=== PATIENT | female | born 1955 | race Caucasian/White ===

== ENCOUNTER → 2016-09-17 | Outpatient (CLI) | payer OTHER ==
[~2016-09-17] VITALS: Ht 160 cm; Wt 93.0 kg
[~2016-09-17] MED LIST: BACTRIM,SEPT1 TABLET PO; BACTROBAN OINTM22 GM TP; BUTALB-ACETAMI1 EAC2 PO; COZAAR100 MG PO; CYCLOBENZAPRINE5 MG PO; ERGOCALCIF50000 UNIT PO; FEMARA2.5 MG PO; FENOFIBRATE160 M1 PO; FIORICET 50-301 EACH PO; FIORINAL 50-321 EACH PO; FLEXERIL5 MG PO; KEFLEX500 MG PO; LOFIBRA,TRIGLI160 MG PO; LOSARTAN POTAS100 MG PO; MELOXICAM15 MG PO; MOBIC15 MG PO; OMEPRAZOLE20 MG PO; OXYCODONE HCL10 MG PO; OXYCODONE HCL5 MG PO; PRILOSEC20 MG PO; SERTRALINE HCL100 MG PO; SIMVASTATIN20 MG PO; TAZTIA XT360 MG PO; TOPAMAX25 MG PO; TOPIRAMATE25 MG PO; ZOCOR20 MG PO; ZOLOFT100 MG PO
== END | disposition home or self-care (01) ==
LOC: AMB 07:21
PROC: 0DJD8ZZ Inspection of Lower Intestinal Tract, Via Natural or Artificial Opening Endoscopic (ICD-10-PCS; principal; 2016-09-17)
DX: Z12.11 Encounter for screening for malignant neoplasm of colon (principal); C50.912 Malignant neoplasm of unspecified site of left female breast; K57.90 Diverticulosis of intestine, part unspecified, without perforation or abscess without bleeding; K64.8 Other hemorrhoids; E78.5 Hyperlipidemia, unspecified; I10 Essential (primary) hypertension; E66.9 Obesity, unspecified; Z68.36 Body mass index [BMI] 36.0-36.9, adult; R73.09 Other abnormal glucose; Z87.891 Personal history of nicotine dependence; Z88.5 Allergy status to narcotic agent; Z88.6 Allergy status to analgesic agent; Z88.8 Allergy status to other drugs, medicaments and biological substances
CPT/HCPCS: 93005

== ENCOUNTER 2016-10-20 06:50 | Day surgery (SDC) | payer OTHER ==
[~2016-10-20] VITALS: Ht 160 cm; Wt 94.3 kg
[~2016-10-20 06:50] MED LIST changes: +FIBER SELECT G1 EACH PO
[2016-10-20] MEDS ORDERED: FIBERWELL (08:39)
[2016-10-20] MEDS ORDERED: VITAFUSION (08:39)
[2016-10-20 08:43] VITALS: BP 132/63
[2016-10-20 14:26] VITALS: BP 117/52
[2016-10-20 15:43] VITALS: BP 132/59
== END 2016-10-20 15:50 | disposition home or self-care (01) ==
LOC: SDC 06:50 → NUC 06:50 → SDC 13:43
DX: C50.312 Malignant neoplasm of lower-inner quadrant of left female breast (principal); Z17.0 Estrogen receptor positive status [ER+]; I10 Essential (primary) hypertension; G47.33 Obstructive sleep apnea (adult) (pediatric); K21.9 Gastro-esophageal reflux disease without esophagitis; E78.5 Hyperlipidemia, unspecified; E66.9 Obesity, unspecified; Z68.37 Body mass index [BMI] 37.0-37.9, adult; Z87.891 Personal history of nicotine dependence; Z88.5 Allergy status to narcotic agent; Z88.6 Allergy status to analgesic agent; Z88.8 Allergy status to other drugs, medicaments and biological substances; Z83.3 Family history of diabetes mellitus; Z82.49 Family history of ischemic heart disease and other diseases of the circulatory system; Z82.3 Family history of stroke
CPT/HCPCS: 78195; 78999; 88305; 88307; A9541; J0690; J1170; J2250; J2405; J2710; J3010; S0020

== ENCOUNTER 2017-10-24 20:13 | Emergency (ER) | payer OTHER ==
[~2017-10-24] VITALS: Ht 167.6 cm; Wt 99.3 kg
[~2017-10-24 20:13] MED LIST changes: +FIBERWELL; +VITAFUSION
[2017-10-24 20:36] LABS: APPEARANCE SL.HAZY ((CLEAR)); BILIRUBIN NEGATIVE; BLOOD NEGATIVE; COLOR YELLOW ((YELLOW)); GLUCOSE (STRIP) NEGATIVE; KETONES NEGATIVE; LEUKOCYTES NEGATIVE; NITRITE NEGATIVE; PROTEIN (STRIP) NEGATIVE; SPECIFIC GRAVITY 1.014 (1.000-1.030)
[2017-10-24 20:50] LABS: HEMATOCRIT 37.7 % (36.0-46.0); HEMOGLOBIN 12.3 G/DL (11.9-15.5); MCH 29.1 PG (29.0-34.0); MCHC 32.6 G/DL (30.0-36.0); MCV 89.1 FL (83-99); PLATELET COUNT 305 K/uL (156-360); RBC DIS.WIDTH-CV 14.2 % (11.8-14.6); RBC DIS.WIDTH-SD 45.8 % (39-53); RED BLOOD COUNT 4.23 M/uL (3.80-5.20); WHITE BLOOD COUNT 8.6 K/uL (4.1-10.2)
[2017-10-24 21:05] LABS: CHLORIDE 111 mEq/L (99-109); POTASSIUM 3.9 mEq/L (3.7-5.4); SODIUM 145 mEq/L (136-147)
[2017-10-24 21:07] LABS: GLUCOSE 111 mg/dL (70-99)
[2017-10-24 21:08] LABS: TOTAL PROTEIN 7.4 g/dL (6.4-8.3)
[2017-10-24 21:09] LABS: TOTAL BILIRUBIN 0.3 mg/dL (0.0-1.0)
[2017-10-24 21:11] LABS: ALKALINE PHOSPHATASE 130 IU/L (3-129); CREATININE 0.8 mg/dL (0.6-1.3); GFR ESTIMATE (CALCULATED) > 59 mL/min/
[2017-10-24 21:12] LABS: BACTERIA 1+ /HPF; EPITHELIAL CELLS 1+ /HPF; MUCUS NONE SEEN /LPF; RED BLOOD CELLS 0-5 /HPF (0-5); UCUL ADDED? NO; WHITE BLOOD CELLS 0-5 /HPF (0-5)
[2017-10-24 21:12] LABS: UREA NITROGEN (BUN) 19 mg/dL (9-23)
[2017-10-24 21:13] LABS: AST (GOT) 15 IU/L (2-34)
[2017-10-24 21:14] LABS: ALT (GPT) 15 IU/L (3-49)
[2017-10-24 21:15] LABS: LIPASE 31 U/L (1.0-51.0)
[2017-10-24 23:16] VITALS: BP 150/67
== END 2017-10-24 23:23 | disposition home or self-care (01) ==
LOC: EME 20:13
PROVIDERS: Emergency Medicine
DX: S39.012A Strain of muscle, fascia and tendon of lower back, initial encounter (principal); N20.0 Calculus of kidney; K80.20 Calculus of gallbladder without cholecystitis without obstruction; K42.9 Umbilical hernia without obstruction or gangrene; X58.XXXA Exposure to other specified factors, initial encounter; I10 Essential (primary) hypertension; Z87.442 Personal history of urinary calculi; Z87.891 Personal history of nicotine dependence
CPT/HCPCS: 74176; 80048; 80053; 81003; 83690; 85027; 99281; 99284; J1885